=== PATIENT | female | born 1965 | race Caucasian/White ===

== ENCOUNTER 2016-06-30 12:42 | Inpatient (IN) | payer BC ==
[~2016-06-30] VITALS: Ht 165.1 cm; Wt 89.0 kg
[2016-07-05] MEDS ORDERED: SYNTHROID50 MCG PO (14:56)
[2016-07-05] MEDS ORDERED: SENOKOT DPS8.6 MG PO (14:56)
[2016-07-05] MEDS ORDERED: HYDROCODONE 5MG/5 MG PO (14:56)
[2016-07-05] MEDS ORDERED: PRILOSEC DPS20 MG PO (14:56)
[2016-07-05] MEDS ORDERED: CLARITIN DPS10 MG PO (14:56)
[2016-07-05] MEDS ORDERED: ZOFRAN DPS8 MG PO (14:57)
[2016-07-05] MEDS ORDERED: GI COCKTAIL PO (14:57)
[2016-07-05] MEDS ORDERED: AMBIEN DPS5 MG PO (14:57)
[2016-07-05] MEDS ORDERED: LEVAQUIN D750 MG/150 IV (14:58)
[2016-07-05] MEDS ORDERED: PHENERGAN W/COD30 ML PO (14:58)
--- NOTE | 2016-07-22 16:23 | HP ---
ADMIT: 06/30/2016 RM/LOC: 508 [facility] MR#: [id number] [address] [address] ADRIENNE FLORES [address] [place] [address] History and Physical SEX: F AGE: 50 : 1965 DATE OF SERVICE: 06/30/2016 CHIEF COMPLAINT: Fever. HISTORY OF PRESENT ILLNESS: The patient is a pleasant, 50-year-old female whom we have followed closely in the Oncology clinic for her metastatic lung cancer. She is currently receiving salvage chemotherapy using gemcitabine, carboplatin, and Avastin. She also just completed a course of radiation to her upper lung mass. She is feeling quite poorly over the last several days with difficulty swallowing and painful swallowing due to her radiation mucositis. She has also had low-grade fevers for the last 3 or 4 days around 100, but today her temp was up to 101.5. Again, she was found to have a neutrophil count of 1.1, which is expected to get even lower in the upcoming days. She was dizzy and complaining of weakness. She denies any urinary symptoms, although her UA in our clinic did show evidence of a urinary tract infection. Her breathing has been fairly comfortable, but she has had a nagging cough that has not improved over the last few days. She was, therefore, admitted to the hospital under our service for further treatment of her possible severe sepsis syndrome. We did give her a dose of cefepime in our clinic prior to her labs and other studies returning when we decided to admit her to the hospital. Blood cultures were also obtained. PAST MEDICAL HISTORY: The patient basically has her history of metastatic lung cancer as well as hypertension. MEDICATIONS: These were reviewed in her chart. They include: 1. OxyContin. 2. Hydrocodone. 3. Losartan. 4. HCTZ. ALLERGIES: REVIEWED IN HER CHART. SOCIAL HISTORY: The patient is . She remains still fairly active. She is employed with [employer]. She is a lifelong nonsmoker. FAMILY HISTORY: She is not aware of any recurrent hereditary malignancies in the family. REVIEW OF SYSTEMS: See HPI. Otherwise, complete review of systems was obtained and was negative. PHYSICAL EXAMINATION: VITAL SIGNS: Temp is 101.2, blood pressure is 134/86, respirations 16, heart rate was initially 112 and is now down to 86. Saturations are normal on room air. GENERAL: She is in no acute distress and provides me a good history. She is alert and oriented. HEENT: Mucous membranes are moist. No oral lesions are seen. Extraocular muscles are intact. Pupils are reactive and symmetrical. ADMIT: 06/30/2016 RM/LOC: 508 [facility] MR#: [id number] [address] [address] ADRIENNE FLORES [address] [address] [address] History and Physical SEX: F AGE: 50 : 1965 NECK: Without adenopathy or JVD. HEART: Regular rate and rhythm without murmur. LUNGS: Clear to auscultation bilaterally without any crackles or wheezes. ABDOMEN: Soft, nontender, and nondistended with positive bowel sounds throughout. No organomegaly is appreciated. EXTREMITIES: No edema, rashes, lesions or adenopathy is felt. LABORATORY AND X-RAY DATA: See HPI. Her lactic acid was 0.9, procalcitonin 0.1, white count was 1.2, platelet count is 41, hemoglobin was down to 5.8. Chest x-ray shows essentially some mild inflammatory changes but no convincing pneumonia. Urinalysis was positive for likely a UTI. ASSESSMENT AND PLAN: Neutropenic fever. The patient does need screening criteria for severe sepsis. She will be covered with broad-spectrum antibiotics with cefepime, and given her ongoing mucositis probably should cover her with at least a couple of days of vancomycin until we know blood culture results. The appropriate labs have been ordered. We will await her blood culture results. I think she does probably have a urinary tract infection, and with her ongoing cause may also have some type of lung infection. If this persists, we will get a CT scan of the chest to further sort out her findings. I will, otherwise, provide her supportive care for her other issues. She does have hypokalemia that will be replaced. We are giving her aggressive fluid resuscitation. She wants to be a full code status. She still has quite meaningful options remaining for her cancer and just has completed her radiation, which I think will be a significant help to her symptoms and survival from this primary lung mass. Chung Heller MD/ luciano JOB #: [id number] CC: Chung Heller, Attending Physician Max South, Family Physician
--- NOTE | 2016-08-04 18:36 | DS ---
ADMIT: 06/30/2016 RM/LOC: 508 [facility] MR#: [id number] [facility]#: [id number] [address] [address] ADRIENNE FLORES [address] [place] [address] Discharge Summary SEX: F AGE: 50 : 1965 ADMISSION DATE: 06/30/2016 DISCHARGE DATE: 07/03/2016 FINAL DIAGNOSES: 1. Neutropenic fever. 2. Anemia. 3. Hypokalemia. 4. Radiation esophagitis. 5. Metastatic lung cancer. 6. Urinary tract infection. 7. Pancytopenia secondary to chemotherapy. 8. Pneumonia. CONSULTATIONS: None. PROCEDURES: None. HISTORY AND PHYSICAL: The patient is a 50-year-old female who has metastatic lung cancer and has been through extensive treatments. She had recent radiation, which has resulted in some esophageal mucositis. Please see original H and P for further details. HOSPITAL COURSE: The patient admitted to the Oncology Service. She was initially placed in the ICU for her febrile neutropenia. We quickly transferred her to the telemetry floor as she is stabilized. We placed her on cefepime antibiotic therapy. She eventually had a UTI that grew group B strep, which was sensitive to our antibiotics of choice. She was given lot of supportive care and physical therapy. Her white count improved to 1.8 at the day of discharge. Her fever had resolved. Her throat symptoms were improved. She had gained some strength. She was wanting to go home and was stable for discharge. We therefore discharged her home on 07/03/2016 on oral antibiotic therapy and close followup. Please see chart for further details on her discharge medications and other plans. Chung Heller MD/ luciano JOB #: [id number] CC: Chung Heller MD, Attending Physician Max South MD, Family Physician
[2016-10-08] MEDS ORDERED: PROVENTIL2.5 MG/3 M IH (13:33)
[2016-10-08] MEDS ORDERED: CLEOCIN75 MG/5 ML IV (13:34)
[2016-10-08] MEDS ORDERED: NORMAL SALINE FL5 ML IV (13:35)
[2016-10-08] MEDS ORDERED: PROTONIX IV40 MG IV (13:36)
[2016-10-08] MEDS ORDERED: NORMAL SALINE1000 ML IV (13:37)
[2016-10-08] MEDS ORDERED: NORMAL SALINE IV (13:38)
[2016-10-08] MEDS ORDERED: SOLU-MEDRO125 MG/2 M IV (13:39)
[2016-10-08] MEDS ORDERED: COLACE-DPS100 MG PO (13:39)
[2016-10-08] MEDS ORDERED: BENADRYL25 MG PO (13:39)
[2016-10-08] MEDS ORDERED: MAALOX DPS30 ML PO (13:40)
[2016-10-08] MEDS ORDERED: TYLENOL DPS325 MG PO (13:41)
[2016-10-08] MEDS ORDERED: NITROSTAT0.4 MG SL (13:42)
[2016-10-08] MEDS ORDERED: MORPHINE P30 MG/30 M IV (13:44)
[2016-10-08] MEDS ORDERED: HEPARIN LO IV (13:44)
[2016-10-08] MEDS ORDERED: MORPHINE2 MG/ML IV (13:45)
[2016-10-08] MEDS ORDERED: NARCAN4 MG IV (13:46)
[2016-10-08] MEDS ORDERED: REGLAN INJ10 MG/2 ML IV (13:47)
== END 2016-07-03 19:00 | disposition home or self-care (01) | DRG 808 ==
LOC: 5MS 12:42 → 3ICU 12:42 → 5MS 07-01 01:24
PROVIDERS: ADMIT Internal Medicine
DX: D70.9 Neutropenia, unspecified (principal); J18.9 Pneumonia, unspecified organism; C79.9 Secondary malignant neoplasm of unspecified site; T66.XXXA Radiation sickness, unspecified, initial encounter; R13.10 Dysphagia, unspecified; K12.30 Oral mucositis (ulcerative), unspecified; C34.90 Malignant neoplasm of unspecified part of unspecified bronchus or lung; N39.0 Urinary tract infection, site not specified; R50.81 Fever presenting with conditions classified elsewhere; K20.8 Other esophagitis; I10 Essential (primary) hypertension; E87.6 Hypokalemia; D61.810 Antineoplastic chemotherapy induced pancytopenia; B95.1 Streptococcus, group B, as the cause of diseases classified elsewhere

== ENCOUNTER → 2016-07-29 | Outpatient (CLI) | payer BC ==
[~2016-07-29] MED LIST: AMBIEN DPS5 MG PO; BENADRYL25 MG PO; CLARITIN DPS10 MG PO; CLEOCIN75 MG/5 ML IV; COLACE-DPS100 MG PO; GI COCKTAIL PO; HEPARIN LO IV; HYDROCODONE 5MG/5 MG PO; LEVAQUIN D750 MG/150 IV; MAALOX DPS30 ML PO; MORPHINE P30 MG/30 M IV; MORPHINE2 MG/ML IV; NARCAN4 MG IV; NITROSTAT0.4 MG SL; NORMAL SALINE FL5 ML IV; NORMAL SALINE IV; NORMAL SALINE1000 ML IV; PHENERGAN W/COD30 ML PO; PRILOSEC DPS20 MG PO; PROTONIX IV40 MG IV; PROVENTIL2.5 MG/3 M IH; REGLAN INJ10 MG/2 ML IV; SENOKOT DPS8.6 MG PO; SOLU-MEDRO125 MG/2 M IV; SYNTHROID50 MCG PO; TYLENOL DPS325 MG PO; ZOFRAN DPS8 MG PO
== END | disposition home or self-care (01) ==
LOC: RAD.S 14:22
DX: M54.2 Cervicalgia (principal); R22.1 Localized swelling, mass and lump, neck; K20.9 Esophagitis, unspecified; C34.30 Malignant neoplasm of lower lobe, unspecified bronchus or lung; I31.3 Pericardial effusion (noninflammatory)

== ENCOUNTER 2016-07-31 05:55 | Day surgery (SDC) | payer BC ==
[~2016-07-31] VITALS: Ht 195.6 cm; Wt 81.0 kg
[~2016-07-31 05:55] MED LIST changes: -BENADRYL25 MG PO; -CLEOCIN75 MG/5 ML IV; -COLACE-DPS100 MG PO; -HEPARIN LO IV; -MAALOX DPS30 ML PO; -MORPHINE P30 MG/30 M IV; -MORPHINE2 MG/ML IV; -NARCAN4 MG IV; -NITROSTAT0.4 MG SL; -NORMAL SALINE FL5 ML IV; -NORMAL SALINE IV; -NORMAL SALINE1000 ML IV; -PROTONIX IV40 MG IV; -PROVENTIL2.5 MG/3 M IH; -REGLAN INJ10 MG/2 ML IV; -SOLU-MEDRO125 MG/2 M IV; -TYLENOL DPS325 MG PO
--- NOTE | 2016-08-27 10:44 | OR ---
ADMIT: 07/31/2016 RM/LOC: [facility] MR#: [id number] [address] [address] FLORESADRIENNE KYLE [address] [place] [address] Operative/Delivery Room Report SEX: F AGE: 50 : 1965 SURGERY DATE: 07/31/2016 SURGEON: Brian Rodriguez MD CHIEF COMPLAINT: Dysphagia. Status post radiation. POSTOPERATIVE DIAGNOSIS: Tight proximal esophageal stricture. PROCEDURE PERFORMED: EGD with dilation. ANESTHESIA: Sedation. ESTIMATED BLOOD LOSS: None. DESCRIPTION OF PROCEDURE: After appropriate informed consent was obtained, the patient was brought to the endoscopy suite. IV sedation was provided. A well-lubricated endoscope was introduced and passed down the esophagus. The mouth and vocal cords appeared normal. But just past the vocal cords, approximately 2 or 3 cm distal to that, was the start of a really tight esophageal stricture. I was unable to get the scope to even advance through the proximal aspect of this stricture. I started with the 12-15 mm balloon and carefully tried to dilate this stricture so I could get the scope to go down but even after dilating up to 15 mm, it just became evident, I was not able to get the scope to go through this area. So, I upsized the balloon, went to the 15 to 18 balloon, went to as big as 16-1/2 mm on this balloon but even still with that dilation, I was unable to get the scope to advance through this stricture. It was just so rock hard and tight; at a bad angle being so proximal, I just could not get enough forward pressure on the scope to advance it down. So, instead of persisting and potentially perforating her esophagus, I did just do several biopsies of this proximal esophageal stricture and then removed the scope. I did talk with Dr. Vasques, [facility] to see if he could possibly do a G-tube with CT guidance today and he is going to work on that. Brian Rodriguez MD/ luciano JOB #: [id number] CC: Brian Rodriguez, Attending Physician Max South, Family Physician
[2016-10-08] MEDS ORDERED: PROVENTIL2.5 MG/3 M IH (13:33)
[2016-10-08] MEDS ORDERED: CLEOCIN75 MG/5 ML IV (13:34)
[2016-10-08] MEDS ORDERED: NORMAL SALINE FL5 ML IV (13:35)
[2016-10-08] MEDS ORDERED: PROTONIX IV40 MG IV (13:36)
[2016-10-08] MEDS ORDERED: NORMAL SALINE1000 ML IV (13:37)
[2016-10-08] MEDS ORDERED: NORMAL SALINE IV (13:38)
[2016-10-08] MEDS ORDERED: COLACE-DPS100 MG PO (13:39)
[2016-10-08] MEDS ORDERED: BENADRYL25 MG PO (13:39)
[2016-10-08] MEDS ORDERED: SOLU-MEDRO125 MG/2 M IV (13:39)
[2016-10-08] MEDS ORDERED: MAALOX DPS30 ML PO (13:40)
[2016-10-08] MEDS ORDERED: TYLENOL DPS325 MG PO (13:41)
[2016-10-08] MEDS ORDERED: NITROSTAT0.4 MG SL (13:42)
[2016-10-08] MEDS ORDERED: HEPARIN LO IV (13:44)
[2016-10-08] MEDS ORDERED: MORPHINE P30 MG/30 M IV (13:44)
[2016-10-08] MEDS ORDERED: MORPHINE2 MG/ML IV (13:45)
[2016-10-08] MEDS ORDERED: NARCAN4 MG IV (13:46)
[2016-10-08] MEDS ORDERED: REGLAN INJ10 MG/2 ML IV (13:47)
== END 2016-07-31 14:45 | disposition home or self-care (01) ==
LOC: SSS 05:55
PROC: 0D758ZZ Dilation of Esophagus, Via Natural or Artificial Opening Endoscopic (ICD-10-PCS; principal; 2016-07-31)
PROC: 0DB58ZX Excision of Esophagus, Via Natural or Artificial Opening Endoscopic, Diagnostic (ICD-10-PCS; principal; 2016-07-31)
DX: K22.10 Ulcer of esophagus without bleeding (principal); K22.2 Esophageal obstruction; C15.9 Malignant neoplasm of esophagus, unspecified; I10 Essential (primary) hypertension; E07.9 Disorder of thyroid, unspecified; Z90.710 Acquired absence of both cervix and uterus; Z79.899 Other long term (current) drug therapy; Z88.0 Allergy status to penicillin

== ENCOUNTER → 2016-08-12 | Outpatient (CLI) | payer BC ==
[~2016-08-12] MED LIST changes: +BENADRYL25 MG PO; +CLEOCIN75 MG/5 ML IV; +COLACE-DPS100 MG PO; +HEPARIN LO IV; +MAALOX DPS30 ML PO; +MORPHINE P30 MG/30 M IV; +MORPHINE2 MG/ML IV; +NARCAN4 MG IV; +NITROSTAT0.4 MG SL; +NORMAL SALINE FL5 ML IV; +NORMAL SALINE IV; +NORMAL SALINE1000 ML IV; +PROTONIX IV40 MG IV; +PROVENTIL2.5 MG/3 M IH; +REGLAN INJ10 MG/2 ML IV; +SOLU-MEDRO125 MG/2 M IV; +TYLENOL DPS325 MG PO
== END | disposition home or self-care (01) ==
LOC: RAD.S 08:51
PROC: 0D20XYZ Change Other Device in Upper Intestinal Tract, External Approach (ICD-10-PCS; principal; 2016-08-12)
DX: Z43.1 Encounter for attention to gastrostomy (principal)

== ENCOUNTER → 2016-08-21 | Outpatient (CLI) | payer BC | END | disposition home or self-care (01) | LOC: RAD.S 10:00 | PROC: 0D20XYZ Change Other Device in Upper Intestinal Tract, External Approach (ICD-10-PCS; principal; 2016-08-21) | DX: Z43.1 Encounter for attention to gastrostomy (principal) ==

== ENCOUNTER 2016-09-25 10:03 | Day surgery (SDC) | payer BC ==
[~2016-09-25] VITALS: Ht 165.1 cm; Wt 77.5 kg
[~2016-09-25 10:03] MED LIST changes: -BENADRYL25 MG PO; -CLEOCIN75 MG/5 ML IV; -COLACE-DPS100 MG PO; -HEPARIN LO IV; -MAALOX DPS30 ML PO; -MORPHINE P30 MG/30 M IV; -MORPHINE2 MG/ML IV; -NARCAN4 MG IV; -NITROSTAT0.4 MG SL; -NORMAL SALINE FL5 ML IV; -NORMAL SALINE IV; -NORMAL SALINE1000 ML IV; -PROTONIX IV40 MG IV; -PROVENTIL2.5 MG/3 M IH; -REGLAN INJ10 MG/2 ML IV; -SOLU-MEDRO125 MG/2 M IV; -TYLENOL DPS325 MG PO
--- NOTE | 2016-10-08 10:36 | OR ---
ADMIT: 09/25/2016 RM/LOC: [facility] MR#: [id number] [address] [address] ADRIENNE FLORES [place] [address] [place] [address] Operative/Delivery Room Report SEX: F AGE: 50 : 1965 SURGERY DATE: 09/25/2016 SURGEON: Brian Rodriguez MD PREOPERATIVE DIAGNOSIS: Esophageal stricture secondary to radiation to the chest. POSTOPERATIVE DIAGNOSIS: Esophageal stricture secondary to radiation to the chest. PROCEDURE PERFORMED: EGD with dilation with [id number] Savary dilators. ANESTHESIA: Sedation. ESTIMATED BLOOD LOSS: Less than 10 mL. DESCRIPTION OF PROCEDURE: After appropriate informed consent was obtained, the patient was brought to the endoscopy suite. IV sedation was provided. A well-lubricated endoscope was introduced and immediately below the arytenoid cartilages was the proximal aspect of this tight stricture. It was still inflamed and ulcerated with whitish plaque along the length of this esophageal stricture. I was unable to advance the scope through this area. I was able to get a wire to advance through the stricture though. I then removed the scope and used a series of [id number]-jpld Savary dilators and started with about a 7 mm dilator, so basically the smallest one that we had, and advanced up to around 13 to 15 mm in size. The dilators went through pretty easily. The last dilator and wire were then removed. The scope was reintroduced, and I was fortunately able to advance the scope through this dilated stricture all the way into the stomach. The gastric mucosa, pylorus, duodenal bulb, second and third portions of the duodenum appeared normal. The scope was then pulled back into the stomach, retroflexed, revealing no hiatal hernia from below, just a little bit of blood pooling in the fundus from the dilation of the esophagus. The scope was then slowly withdrawn, and on the way out, I could see that there was a pretty long mucosal tear where I had done the dilation that did not appear to be full-thickness at all. I could see some muscle fibers though, so I decompressed the stomach and withdrew the scope entirely. There was no active bleeding, but we did obviously get a nice dilation effect to this stricture in hopes of allowing her to be able to swallow and tolerate her secretions a little bit easier. The scope was withdrawn. She tolerated the procedure well, and was taken to the recovery room in stable condition. Brian Rodriguez MD/ luciano JOB #: [id number] CC: Brian Rodriguez MD, Attending Physician Max South MD, Family Physician
[2016-10-08] MEDS ORDERED: PROVENTIL2.5 MG/3 M IH (13:33)
[2016-10-08] MEDS ORDERED: CLEOCIN75 MG/5 ML IV (13:34)
[2016-10-08] MEDS ORDERED: NORMAL SALINE FL5 ML IV (13:35)
[2016-10-08] MEDS ORDERED: PROTONIX IV40 MG IV (13:36)
[2016-10-08] MEDS ORDERED: NORMAL SALINE1000 ML IV (13:37)
[2016-10-08] MEDS ORDERED: NORMAL SALINE IV (13:38)
[2016-10-08] MEDS ORDERED: COLACE-DPS100 MG PO (13:39)
[2016-10-08] MEDS ORDERED: BENADRYL25 MG PO (13:39)
[2016-10-08] MEDS ORDERED: SOLU-MEDRO125 MG/2 M IV (13:39)
[2016-10-08] MEDS ORDERED: MAALOX DPS30 ML PO (13:40)
[2016-10-08] MEDS ORDERED: TYLENOL DPS325 MG PO (13:41)
[2016-10-08] MEDS ORDERED: NITROSTAT0.4 MG SL (13:42)
[2016-10-08] MEDS ORDERED: MORPHINE P30 MG/30 M IV (13:44)
[2016-10-08] MEDS ORDERED: HEPARIN LO IV (13:44)
[2016-10-08] MEDS ORDERED: MORPHINE2 MG/ML IV (13:45)
[2016-10-08] MEDS ORDERED: NARCAN4 MG IV (13:46)
[2016-10-08] MEDS ORDERED: REGLAN INJ10 MG/2 ML IV (13:47)
== END 2016-09-25 14:00 | disposition home or self-care (01) ==
LOC: SSS 10:03
PROC: 0D718ZZ Dilation of Upper Esophagus, Via Natural or Artificial Opening Endoscopic (ICD-10-PCS; principal; 2016-09-25)
DX: K22.2 Esophageal obstruction (principal); I10 Essential (primary) hypertension; K21.9 Gastro-esophageal reflux disease without esophagitis; E03.9 Hypothyroidism, unspecified; Z88.0 Allergy status to penicillin; Z85.118 Personal history of other malignant neoplasm of bronchus and lung; Z90.710 Acquired absence of both cervix and uterus; Z98.890 Other specified postprocedural states

== ENCOUNTER 2016-10-01 09:07 | Emergency (ER) | payer BC ==
--- NOTE | 2016-10-02 10:50 | ER ---
ADMIT: 10/01/2016 RM/LOC: ER [facility] MR#: [id number] [address] [address] ADRIENNE FLORES [address] [place] [address] Emergency Room Report SEX: F AGE: 50 : 1965 DATE: 10/01/2016 CHIEF COMPLAINT: Chest pain. HISTORY OF PRESENT ILLNESS: The patient is a 50-year-old female with history of lung cancer, who has had chemo and radiation, normally sees Dr. Heller. She was actually seen at the Oncology Clinic today, seen by the nurse practitioner there. There was some concern with this atypical chest pain and her history of blood clots in the past, so she was sent to our ER for further evaluation of possible PE. The patient states she has been having this pain for several weeks, so it is not real acute but with her history of DVT and PE in the past, we are indeed also concerned about possible PE. She denies any fevers, chills, or any difficulty breathing. She does not have any change in bowel or bladder function. She denies any new leg swelling or calf pain. PAST MEDICAL HISTORY: 1. Lung cancer. 2. DVT. 3. PE. PAST SURGICAL HISTORY: She has a port to the right side of her chest, hysterectomy, feeding tube. ALLERGIES: PENICILLIN. MEDICATIONS: See nurse's note. She did put on 4 fentanyl patches this morning. SOCIAL HISTORY: Denies smoking, drug, or alcohol use. Never was a smoker. PHYSICAL EXAMINATION: GENERAL: The patient is alert, is not in any distress, does appear a little uncomfortable. HEENT: Head is atraumatic. HEART: Regular rate and rhythm. LUNGS: Clear to auscultation. There is a port on the right side of her chest, which does not appear to have any superficial signs of infection. SKIN: Warm and dry. She has no calf pain, pedal edema, or Homans sign. LABORATORY AND X-RAY DATA: She did have labs done this morning at the Oncology Clinic and those were reviewed. She did have a D-dimer of 0.85. Sodium was slightly low at 133. Hemoglobin was 8.4, which is not new for her. ADMIT: 10/01/2016 RM/LOC: [facility] MR#: [id number] [address] [address] ADRIENNE FLORES [address] [place] [address] Emergency Room Report SEX: F AGE: 50 : 1965 EKG shows sinus rhythm, rate of 97, no signs of ST-elevation or acute AK. CT angio of her chest was done, which reveals no PE, and overall appears stable or slightly improved. The patient was given Dilaudid here and her pain was significantly improved. I discussed the case with Dr. Heller, her oncologist, and plan at this time is to discharge the patient home. She is to follow up with Dr. Heller. I have instructed her to take off her extra fentanyl patches. DIAGNOSES: 1. Atypical chest pain. 2. Metastatic lung cancer. Axel Caba MD/ luciano JOB #: [id number] CC: Axel Caba MD, Attending Physician UNKNOWN, Family Physician
[2016-10-08] MEDS ORDERED: PROVENTIL2.5 MG/3 M IH (13:33)
[2016-10-08] MEDS ORDERED: CLEOCIN75 MG/5 ML IV (13:34)
[2016-10-08] MEDS ORDERED: NORMAL SALINE FL5 ML IV (13:35)
[2016-10-08] MEDS ORDERED: PROTONIX IV40 MG IV (13:36)
[2016-10-08] MEDS ORDERED: NORMAL SALINE1000 ML IV (13:37)
[2016-10-08] MEDS ORDERED: NORMAL SALINE IV (13:38)
[2016-10-08] MEDS ORDERED: SOLU-MEDRO125 MG/2 M IV (13:39)
[2016-10-08] MEDS ORDERED: BENADRYL25 MG PO (13:39)
[2016-10-08] MEDS ORDERED: COLACE-DPS100 MG PO (13:39)
[2016-10-08] MEDS ORDERED: MAALOX DPS30 ML PO (13:40)
[2016-10-08] MEDS ORDERED: TYLENOL DPS325 MG PO (13:41)
[2016-10-08] MEDS ORDERED: NITROSTAT0.4 MG SL (13:42)
[2016-10-08] MEDS ORDERED: MORPHINE P30 MG/30 M IV (13:44)
[2016-10-08] MEDS ORDERED: HEPARIN LO IV (13:44)
[2016-10-08] MEDS ORDERED: MORPHINE2 MG/ML IV (13:45)
[2016-10-08] MEDS ORDERED: NARCAN4 MG IV (13:46)
[2016-10-08] MEDS ORDERED: REGLAN INJ10 MG/2 ML IV (13:47)
== END 2016-10-01 12:00 | disposition home or self-care (01) ==
LOC: ER 09:07
DX: R07.89 Other chest pain (principal); C34.90 Malignant neoplasm of unspecified part of unspecified bronchus or lung; Z88.0 Allergy status to penicillin; Z90.710 Acquired absence of both cervix and uterus

== ENCOUNTER 2016-10-05 10:32 | Emergency (ER) | payer BC ==
[2016-10-08] MEDS ORDERED: PROVENTIL2.5 MG/3 M IH (13:33)
[2016-10-08] MEDS ORDERED: CLEOCIN75 MG/5 ML IV (13:34)
[2016-10-08] MEDS ORDERED: NORMAL SALINE FL5 ML IV (13:35)
[2016-10-08] MEDS ORDERED: PROTONIX IV40 MG IV (13:36)
[2016-10-08] MEDS ORDERED: NORMAL SALINE1000 ML IV (13:37)
[2016-10-08] MEDS ORDERED: NORMAL SALINE IV (13:38)
[2016-10-08] MEDS ORDERED: BENADRYL25 MG PO (13:39)
[2016-10-08] MEDS ORDERED: COLACE-DPS100 MG PO (13:39)
[2016-10-08] MEDS ORDERED: SOLU-MEDRO125 MG/2 M IV (13:39)
[2016-10-08] MEDS ORDERED: MAALOX DPS30 ML PO (13:40)
[2016-10-08] MEDS ORDERED: TYLENOL DPS325 MG PO (13:41)
[2016-10-08] MEDS ORDERED: NITROSTAT0.4 MG SL (13:42)
[2016-10-08] MEDS ORDERED: HEPARIN LO IV (13:44)
[2016-10-08] MEDS ORDERED: MORPHINE P30 MG/30 M IV (13:44)
[2016-10-08] MEDS ORDERED: MORPHINE2 MG/ML IV (13:45)
[2016-10-08] MEDS ORDERED: NARCAN4 MG IV (13:46)
[2016-10-08] MEDS ORDERED: REGLAN INJ10 MG/2 ML IV (13:47)
--- NOTE | 2016-10-08 14:46 | ER ---
ADMIT: 10/05/2016 RM/LOC: ER [facility] MR#: [id number] [address] [address] ADRIENNE FLORES [address] [place] [address] Emergency Room Report SEX: F AGE: 50 : 1965 DATE: 10/05/2016 ADDENDUM: CHIEF COMPLAINT: G-tube fell out. HISTORY OF PRESENT ILLNESS: This is a 50-year-old female. Her G-tube fell out at home. We were not able to find an 18-gauge here in the hospital, so I replaced it with her own. I did tell her to call the surgeons tomorrow just to have G-tube replacement for previous hospital visits. KUB is going to be done. I will have Dr. Montemayor over-read it for G-tube placement. Once that is done, the patient will be discharged to home. CLINICAL IMPRESSION: G-tube replacement. ZANDER Zuniga / Sal Montemayor MD / luciano JOB #: [id number] CC: Sal Montemayor MD, Attending Physician
== END 2016-10-05 12:28 | disposition home or self-care (01) ==
LOC: ER 10:32
PROC: 0DH63UZ Insertion of Feeding Device into Stomach, Percutaneous Approach (ICD-10-PCS; principal; 2016-10-05)
DX: Z43.1 Encounter for attention to gastrostomy (principal); F17.210 Nicotine dependence, cigarettes, uncomplicated; Z85.118 Personal history of other malignant neoplasm of bronchus and lung; Z88.0 Allergy status to penicillin; Z79.899 Other long term (current) drug therapy

== ENCOUNTER 2016-10-06 19:16 | Inpatient (IN) | payer BC ==
[~2016-10-06] VITALS: Ht 165.1 cm; Wt 87.1 kg
--- NOTE | ~2016-10-06 | DS ---
ADMIT: 10/06/2016 RM/LOC: 314 [facility] MR#: [id number] [address] [address] FLORIAN FLORESIE Tomas [address] [place] [address] General Discharge Summary SEX: F AGE: 50 : 1965 ADMISSION DATE: 10/06/2016 DISCHARGE DATE: 10/07/2016 FINAL DIAGNOSES: 1. Tracheoesophageal fistula. 2. Stage IV lung cancer. 3. Aspiration pneumonia. 4. Hypertension. 5. Hypothyroidism. Tomeka Navarrete MD/ laniel JOB #: [id number] CC: Tomeka Navarrete MD, Attending Physician Tomeka Navarrete MD, Family Physician
[2016-10-08] MEDS ORDERED: PROVENTIL2.5 MG/3 M IH (13:33)
[2016-10-08] MEDS ORDERED: CLEOCIN75 MG/5 ML IV (13:34)
[2016-10-08] MEDS ORDERED: NORMAL SALINE FL5 ML IV (13:35)
[2016-10-08] MEDS ORDERED: PROTONIX IV40 MG IV (13:36)
[2016-10-08] MEDS ORDERED: NORMAL SALINE1000 ML IV (13:37)
[2016-10-08] MEDS ORDERED: NORMAL SALINE IV (13:38)
[2016-10-08] MEDS ORDERED: COLACE-DPS100 MG PO (13:39)
[2016-10-08] MEDS ORDERED: BENADRYL25 MG PO (13:39)
[2016-10-08] MEDS ORDERED: SOLU-MEDRO125 MG/2 M IV (13:39)
[2016-10-08] MEDS ORDERED: MAALOX DPS30 ML PO (13:40)
[2016-10-08] MEDS ORDERED: TYLENOL DPS325 MG PO (13:41)
[2016-10-08] MEDS ORDERED: NITROSTAT0.4 MG SL (13:42)
[2016-10-08] MEDS ORDERED: MORPHINE P30 MG/30 M IV (13:44)
[2016-10-08] MEDS ORDERED: HEPARIN LO IV (13:44)
[2016-10-08] MEDS ORDERED: MORPHINE2 MG/ML IV (13:45)
[2016-10-08] MEDS ORDERED: NARCAN4 MG IV (13:46)
[2016-10-08] MEDS ORDERED: REGLAN INJ10 MG/2 ML IV (13:47)
--- NOTE | 2016-10-19 14:54 | HP ---
ADMIT: 10/06/2016 RM/LOC: 314 [facility] MR#: [id number] [address] [address] ADRIENNE FLORES [address] [place] [address] History and Physical SEX: F AGE: 50 : 1965 DATE OF SERVICE: CHIEF COMPLAINT: Chest pain and reflux of G-tube feeding material. HISTORY OF PRESENT ILLNESS: This is a 50-year-old lady, who has a history of stage IV metastatic lung cancer and is on palliative chemotherapy treatments. Her oncologist is Dr. Heller. Her primary MD is Dr. South in [place]. She has had radiation and has esophageal strictures. She has a G-tube for her nutrition. However, to help her better handle her own secretions and possibly get to the point of being able to eat for comfort, she has been undergoing esophageal dilation. Her last dilation procedure was September [address] Rodriguez. This procedure did allow her to feel like she could swallow a little bit better for several days. However, she said that yesterday, her G-button came out, so she had it replaced in [place]. X-rays were done for placement. She then did a feeding with last evening and pretty quickly began to feel some pain in the chest and then started coughing and coughed out some of the formula product. She said every time she tries to lay back, she feels like she is going to cough and has pain and sense of reflux. She has continuous belching. She came into our emergency room and underwent chest x- ray, which showed some interstitial markings in the left base, but no significant findings otherwise. She also had esophagram. It could not be completed totally because she was not able to lay down to check for actual reflux. Every time she tried to lay down, she would have severe gagging and coughing. She also could not drink the barium because she was gagging on that. Therefore, barium was instilled through the G-tube. With the limited study, barium was placed through her G-tube and flowed into the duodenum just as expected. There was also seen soft tissue or curvilinear structure in the left paraspinal region as read by the radiologist. She was uncertain what that is, but did not think it was a fistula. Radiologist recommended possible CT with contrast in the stomach to rule out fistula. The patient had a fever, was tachycardic. She was worked up on the sepsis protocol and admitted to ICU. She was started on clindamycin and Levaquin IV. We will also do a dose of steroids, and we will continue those. We will keep her completely n.p.o. and nothing per the G-tube either. Her medicines were held. PAST MEDICAL HISTORY: Significant for her lung cancer with chemotherapy and radiation. Also, significant for hypertension, which is controlled with her losartan alone. Hypothyroidism and history of diverticulitis. MEDICATIONS: She said she takes morphine short intermediate or short-acting (she was uncertain) 15 mg about twice daily, sometimes more often. She also has losartan and hydrochlorothiazide, we do not have the actual doses. ALLERGIES: PENICILLIN. SOCIAL HISTORY: She is . 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 She is a lifelong nonsmoker. ADMIT: 10/06/2016 RM/LOC: 314 [facility] MR#: [id number] [address] [place] [id number] ADRIENNE FLORES [address] [place] [address] History and Physical SEX: F AGE: 50 : 1965 FAMILY HISTORY: Negative for hereditary malignancies. REVIEW OF SYSTEMS: GENERAL: She has had fever, malaise. ENT: She feels gagging and little bit of throat irritation. Denies other ENT symptoms. She is of course unable to swallow very much at all, including her own secretions at times. GI: Difficulty swallowing and she has the gagging. She said she is belching over and over. She denies dark stools. She said she actually has not had a bowel movement for 3 or 4 days, which is quite unusual since she usually had loose stools. : No complaints. MUSCULOSKELETAL: Nothing specific. She does have achiness and pain in the anterior chest when she is belching. The belching does not decrease the pain. NEUROPSYCHIATRIC: She is frustrated by her symptoms, but otherwise benign. ENDOCRINE: Positive for hypothyroidism. She is not diabetic. PHYSICAL EXAMINATION: VITAL SIGNS: Blood pressures range from 109 to 130 over 70s. Heart rate is in the 110s. She has a temp of 99.0. On admission last evening, it was 101.2. GENERAL: She is sitting up in a chair, appears tired and uncomfortable. She was dozing and wakes up easily. She is alert, oriented x3. She has recurrent belching over and over. HEENT: Mucous membranes look slightly dry. She has no scleral icterus. No jaundice. NECK: Supple. LUNGS: Diminished, but minimal rhonchi. She said it hurts to take a deep breath, so it is difficult to auscultate throughout. I hear no wheezing. HEART: Regular. Tachycardic. ABDOMEN: Belly with bowel sounds present. She has a little tenderness to palpation across the upper abdomen. EXTREMITIES: Lower extremities have a trace to 1+ pretibial edema. LABORATORY DATA: Sodium 130, potassium 4.4, chloride 90, bicarb 32, BUN is 21, with a creatinine of 0.6. Her glucose was elevated at 210, but she has had steroids. Bilirubin 0.5, albumin 2.8, calcium was 9.1. AST and ALT are normal. Cardiac enzymes were drawn when she came to the emergency room and they were normal. White count is 9.3; hemoglobin 8.0, which has dropped from 9.2 on September 16 and 8.7 on September 23; RDW is 19; and her platelet count is 266. ASSESSMENT: 1. Esophageal stricture with recent dilation 12 days ago. 2. Metastatic lung cancer. 3. Hypertension. 4. Hypothyroidism, stable. ADMIT: 10/06/2016 RM/LOC: 314 [facility] MR#: [id number] 2620 [facility] [address] [place] [id number] ADRIENNE FLORES [address] [place] [address] History and Physical SEX: F AGE: 50 : 1965 PLAN: She has all her medicines on hold and feedings on hold. She has IV fluids running and antibiotics. She had sepsis workup because of her fever and concern for esophageal source. Dr. Rodriguez will see her today and will also notify Dr. Heller of the patient's admission. I will continue close monitoring and had morphine PAN TANK WORKER for pain and also Protonix for GI protection. I will not start any pharmacologic VTE prophylaxis at this time in case she goes to surgery for scope. We will use BETTY hose and sequential compression devices. Currently, her blood pressure is stable. I will continue to hold her blood pressure meds for now. If necessary we can use medicine IV, but at this point, it is not needed. Tomeka Navarrete MD/ luciano JOB #: [id number] CC: Tomeka Navarrete, Attending Physician Tomeka Navarrete, Family Physician
--- NOTE | 2016-10-23 07:38 | DS ---
ADMIT: 10/06/2016 RM/LOC: 314 [facility] MR#: [id number] [address] [address] ADRIENNE FLORES [address] [place] [address] General Discharge Summary SEX: F AGE: 50 : 1965 ADMISSION DATE: 10/06/2016 DISCHARGE DATE: 10/07/2016 FINAL DIAGNOSES: 1. Tracheoesophageal fistula. 2. Esophageal stricture. 3. Metastatic lung cancer status post radiation and currently on palliative chemotherapy. 4. Hypertension. 5. Hypothyroidism, stable. 6. Aspiration pneumonia. HISTORY OF PRESENT ILLNESS: Adrienne was admitted from an outside facility to be seen by our local surgeon who has done her esophageal dilations. She has stage IV lung cancer, and has undergone radiation therapy which caused esophageal stricture. She has also had concern for tracheoesophageal fistula. In any case, she has G-tube feeding and came to our hospital from [place] because of worsening reflux and concern for aspiration. She recently had an esophageal dilation about 12 days prior to this hospital stay and said her symptoms have been steadily worsening. She already had other EGDs as well. In any case, on admission, she had interstitial markings and could not tolerate laying back down for a CAT scan. We could not do any further imaging studies besides plain x-ray. She had belching reflux and was refluxing up some of her G tube feeding material. Because of her high risk of aspiration and the fact that she requires tertiary care with Oncologic Surgery and surgeon who could possibly insert an esophageal stent. She was transferred to [facility] per Dr. Rodriguez's recommendations. On admission to our hospital, I did start her on IV Levaquin and continue clindamycin. We kept her head of bed elevated and we have kept her n.p.o. with no tube feedings to protect her airway. I also used Protonix for gastric protection and morphine NURSE ADVISOR for pain control. She was transferred to [facility] on 10/07/2016 and studies as well as records were sent with her. Tomeka Navarrete MD/ luciano JOB #: [id number] CC: Tomeka Navarrete MD, Attending Physician Tomeka Navarrete MD, Family Physician
--- NOTE | 2016-11-08 18:10 | ER ---
ADMIT: 10/06/2016 RM/LOC: 314 [facility] MR#: [id number] [place], [place] [id number] ADRIENNE FLORES [address] [place] [address] Emergency Room Report SEX: F AGE: 50 : 1965 DATE: 10/06/2016 ADDENDUM: See T-sheet for complete H and P. PAST MEDICAL HISTORY: The patient has lung cancer and gets chemotherapy and radiation. She also has a history of hypothyroidism, hypertension, and diverticulitis. She also has a history of esophageal strictures, for which she has had dilations done in the past and has had a dilation done recently. She also has a G-tube for all her nutritional needs. MEDICATIONS: See nurse's note. ALLERGIES: SEE NURSE'S NOTE. SOCIAL HISTORY: The patient does not smoke, drink, or use drugs. PHYSICAL EXAMINATION: VITAL SIGNS: Blood pressure is 140/83, pulse 141, respirations 24, temperature 100.1, and saturation 98% on nonrebreather. HEENT: Head is atraumatic. Airway is patent. She has no stridor. HEART: Tachycardic. LUNGS: She has some coarse breath sounds bilaterally in the bases, and she is tachypneic. ABDOMEN: Soft. She does have a G-tube in place. SKIN: Warm and dry. EXTREMITIES: She has good pulses in all 4 extremities. She has no pedal edema. LABORATORY DATA: Shows she has a hemoglobin of 8.2, which she does have a history of anemia. INR was 1.13. Urinalysis showed 1+ protein; otherwise, no signs of infection. Chemistry showed she was hyponatremic with a sodium 131. Glucose was 185. Magnesium was 1.6. Liver enzymes were normal. Troponin was negative. ABG showed a pH 7.47, pO2 of 79, and pCO2 of 44. IMAGING: Chest x-ray showed cardiomegaly and interstitial markings in the left lung base suggesting atelectasis or inflammatory changes. EMERGENCY DEPARTMENT COURSE: When the patient presented, she was significantly short of breath and tachycardic. We were able to titrate her oxygen down while she was in the Emergency Department, but she would not ADMIT: 10/06/2016 RM/LOC: 314 [facility] MR#: [id number] [id number] [place], [place] [id number] ADRIENNE FLORES [address] [place] [address] Emergency Room Report SEX: F AGE: 50 : 1965 tolerate lying flat whatsoever. Based on her x-ray, there is a concern that she might have a possible fistula. Due to her recent dilation with her symptoms and significant oxygen requirement when she arrived, we will be admitting the patient. I spoke to Dr. Navarrete, who is the primary care physician. We will be admitting the patient at this time. The patient is admitted in serious condition. She was given Solu-Medrol 125 mg IV. Levaquin 750 mg IV, and clindamycin 900 mg IV while in the Emergency Department. DIAGNOSES: 1. Shortness of breath. 2. Possible esophageal fistula. 3. Aspiration pneumonia or pneumonitis. Axel Caba MD/ laniel JOB #: [id number] CC: Tomeka Navarrete MD, Attending Physician Tomeka Navarrete MD, Family Physician
== END 2016-10-07 11:50 | disposition short-term general hospital (02) | DRG 178 ==
LOC: ER 19:16 → 3ICU 21:43
PROVIDERS: ADMIT Family Medicine
DX: J86.0 Pyothorax with fistula (principal); C79.9 Secondary malignant neoplasm of unspecified site; C34.90 Malignant neoplasm of unspecified part of unspecified bronchus or lung; K22.2 Esophageal obstruction; I10 Essential (primary) hypertension; E03.9 Hypothyroidism, unspecified; K57.90 Diverticulosis of intestine, part unspecified, without perforation or abscess without bleeding; Z93.1 Gastrostomy status

== ENCOUNTER 2016-10-15 18:24 | Inpatient (IN) | payer BC ==
[~2016-10-15] VITALS: Ht 162.6 cm; Wt 76.7 kg
--- NOTE | ~2016-10-15 | ECH ---
Transthoracic Echocardiography Report (TTE) Demographics Patient Name ADRIENNE FLORES Date of Study 10/16/2016 Patient Number [id number] Visit Number [id number] Date of 1965 Room Number 313 Accession Number [id number] Gender Female Age 50 year(s) Referring Rosalba Tomeka J Radiographer Cardiac Catheterization [facility] Physician Physician Interpreting King Juancarlos Herr MD Mill Dresser Physician Supervising Ordering Physician Supa HUFFMAN MD/WESTLEY Garcia Nurse Stress Finish Machine Tender Conclusions Summary Technically fair exam done with patient on ventilator. The estimated left ventricular ejection fraction is 40-45%. Segmental wall motion abnormalities noted. Mild left ventricular hypertrophy. Diastolic assessment reveals Grade I diastolic dysfunction. No significant valvular abnormalities. Procedure Type of Study TTE procedure:Echo Complete SF. Procedure Date Date: 10/16/2016 Start: 11:30 AM Technical Quality: Fair due to patient on ventilator. Indications:Elevated Troponin. Additional Indications:elevated BNP Appropriate Use Criteria: 9 Height: 64 inches Weight: 169 pounds BSA: 1.82 m Rhythm: Within normal limits HR: 93 bpm BP: 133/93 mmHg M-Mode/2D Measurements LV Diastolic Dimension: 4.66 cm LV Systolic Dimension: 2.82 cm LV Septum Diastolic: 1.12 cm LV PW Diastolic: 1.01 cm AO Root Dimension: 3.01 cm Cardiac Output: 6.04 l/min LA Dimension: 3.48 cm Cardiac Index: 3.32 l/min*m RV Diastolic Dimension: 2.19 cm LA volume index: 20 ml/m LVOT: 2.23 cm LVOT VTI: 16.63 cm RV Base: 2.6 cm LV Stroke volume: 64.92 ml RV Mid: 1.9 cm LV Stroke volume index: 35.67 ml/m TAPSE: 2 cm Doppler Measurements AV Peak Velocity: 1.3 m/s MV Peak E-Wave: 0.55 m/s AV Peak Gradient: 6.76 mmHg MV Peak A-Wave: 0.62 m/s AV Mean Gradient: 4.64 mmHg MV E/A Ratio: 0.89 LVOT Peak Velocity: 0.82 m/s MV P1/2t: 64.9 msec AV Area (Continuity):2.77 cm MV Deceleration Time: 223.8 msec MV Area (PHT): 3.39 cm PV Peak Velocity: 0.79 m/s PV Peak Gradient: 2.52 mmHg RA Area: 13.36 cm Findings Left Ventricle The left ventricle is normal in size . Mild left ventricular hypertrophy. Diastolic assessment reveals Grade I diastolic dysfunction. Right Ventricle Normal right ventricle structure and function. Left Atrium Normal left atrial size. Right Atrium Normal right atrial size. Mitral Valve Mild thickening of the mitral valve leaflets. Trivial mitral regurgitation by color Doppler. Aortic Valve Normal aortic valve structure and function. Tricuspid Valve Normal tricuspid valve structure and function. Trivial tricuspid regurgitation by color Doppler. Pulmonic Valve The pulmonic valve is not well visualized. Pericardial Effusion No evidence of pericardial effusion. Miscellaneous Visualized portions of the aortic root and ascending aorta appear normal in size. Pleural Effusion No evidence of pleural effusion. Contractility Score LV regional wall motion:(0-Non visualized 1-Normal 2-Hypokinesis 3-Akinesis 4-Dyskinesis 5-Aneurysm) Signature
--- NOTE | ~2016-10-15 | CB ---
ADMIT: 10/15/2016 RM/LOC: 313 [facility] MR#: [id number] [address] [address] ADRIENNE FLORES [address] [place] [address] Code Blue Report SEX: F AGE: 50 : 1965 Corrected: 10/22/2016 1338 danny DATE: 10/15/2016 I was called to the floor at 2125 hours by the patient who was admitted directly through our ER for esophageal tracheal fistula problems, possible aspiration. Has a known history of lung cancer on radiation stage IV. SUBJECTIVE: I was called up to the floor bed because the patient become acutely, had a respiratory distress. She was actually not verbalizing. When I arrived on the floor, her was out there, he confirms that she is full code. Due to her coarseness of her lung sounds, she had a strong pulse. We elected to intubate here. I gave her 20 mg IV etomidate, 100 mg IV succinylcholine. I intubated with a 7.5 ET tube, was taped at the teeth. Breath sounds were good. Sats came up. We had no difficulty. Dr. Navarrete arrived in the room and will take over the care. ASSESSMENT: 1. Acute respiratory arrest. 2. Intubated in the room as described. PLAN: Per Dr. Navarrete. Sal Montemayor MD/ laniel JOB #: [id number] CC: Tomeka Navarrete, Attending Physician Tomeka Navarrete, Family Physician Corrected: 10/22/2016 1338 danny
[~2016-10-15 18:24] MED LIST changes: +BENADRYL25 MG PO; +CLEOCIN75 MG/5 ML IV; +COLACE-DPS100 MG PO; +HEPARIN LO IV; +MAALOX DPS30 ML PO; +MORPHINE P30 MG/30 M IV; +MORPHINE2 MG/ML IV; +NARCAN4 MG IV; +NITROSTAT0.4 MG SL; +NORMAL SALINE FL5 ML IV; +NORMAL SALINE IV; +NORMAL SALINE1000 ML IV; +PROTONIX IV40 MG IV; +PROVENTIL2.5 MG/3 M IH; +REGLAN INJ10 MG/2 ML IV; +SOLU-MEDRO125 MG/2 M IV; +TYLENOL DPS325 MG PO
--- NOTE | 2016-10-19 14:54 | HP ---
ADMIT: 10/15/2016 RM/LOC: 504 [facility] MR#: [id number] [address] [place], [place] [address] ADRIENNE FLORES [address] [place] [address] History and Physical SEX: F AGE: 50 : 1965 DATE OF SERVICE: Please refer back to Zach on October 06, 2016. INTERVAL HISTORY: Adrienne went to [facility] upon transfer on October 07, 2016 and underwent esophageal stent placement for esophageal stricture and history of fistula. She was dismissed home and according to dismissal instructions that she told me she was on Levaquin and was told to start advancing very slowly with her water intake and then soft diet. She started to have shortness of breath on October 13 and presented to the emergency room in [place] at [facility]. She was admitted there as an OPO. She had chest x-ray showing no pneumonia. Her breathing felt worse as she tried to lie down supine, which was very similar to all the symptoms she had from her esophageal reflux and stricture. She was placed on oxygen, continued on antibiotic Levaquin to finish out treatment that started in [place]. She was given a dose of Lovenox for VTE prophylaxis. She also was put on O2. She was only very mildly hypoxic, but complained of feeling so short of breath. The oxygen was partly for comfort as well. In any case, she was improving, was off oxygen and then today started to cough more and brought up some phlegm along with what appeared to be tube feeding materials. Her physician in [place] contacted [facility] and was told to do a swallowing study. Dr. South contacted our facility at [place] because he did not feel they had the appropriate facility or capabilities to do the swallow study or any treatments that it might incur. She was transferred to my service and readmitted to [place]. On arrival, she is retching with a lot of belching, which is similar to the way she felt prior to the esophageal stent placement. She has a cough. She has not vomited in the last hour since I have been visiting with her. I reviewed her notes from [place] including laboratory and chest x-ray results. I will admit her, restart her on oxygen. Her saturations range from 92% to 97%, but she complains of feeling short of breath. I will also use Lovenox for VTE prophylaxis. Continue the Levaquin. Again, [place] report was that she ADMIT: 10/15/2016 RM/LOC: 504 [facility] MR#: [id number] [address] [address] FLORESADRIENNE Tomas [address] [place] [address] History and Physical SEX: F AGE: 50 : 1965 had pneumonia, but I do not have an actual chest x-ray report from [place]. The most recent chest x-ray was done in [place] and was clear. We will also monitor her electrolytes and her blood count. She has chronic anemia. She will continue nebulizer treatments that she was getting in [place]. I will use Dilaudid for her esophageal pain. Finally, she usually has been on tube feeds, but I will hold those for now and keep her n.p.o. until the morning when we get her swallowing study and then defer to both surgery and her oncologic surgeon. Dr. Hitesh Barnes is her surgeon in [place], and Dr. Rodriguez here in [place] is well acquainted with her as well, and I will ask him to consult in the morning. Adrienne was comfortable with that plan. Tomeka Navarrete MD/ luciano JOB #: [id number] CC: Tomeka Navarrete, Attending Physician Tomeka Navarrete, Family Physician
--- NOTE | 2016-10-22 08:15 | CO ---
ADMIT: 10/15/2016 RM/LOC: 313 [facility] MR#: [id number] [address] [address] ADRIENNE FLORES [address] [place] [address] Consultation SEX: F AGE: 50 : 1965 DATE OF CONSULTATION: 10/16/2016 ATTENDING PHYSICIAN: Tomeka Navarrete CONSULTING PHYSICIAN: Jose Cowart MD REASON FOR CONSULTATION: Elevated troponin level. HISTORY OF PRESENT ILLNESS: Adrienne is a 50-year-old female, who I was asked to see in consultation by Dr. Navarrete regarding elevated troponin level. Adrienne has no prior cardiac history, but does have stage IV metastatic lung cancer, she is undergoing palliative chemotherapy treatment. She has had radiation and has had esophageal strictures and tracheoesophageal fistula. She has a G- tube in place for nutrition. She recently on 10/06 was admitted to the hospital here and then transferred to [facility] where she underwent an esophageal stent for the fistula and stricture. She was discharged and then began having increasing shortness of breath on the and presented to the emergency room in [facility]. There her chest x-ray was reported as unremarkable, but she was very short of breath. [facility] was contacted and they recommended doing a swallow study. [facility] was unable to perform this, so she was transferred on the to [place] in the care of Dr. Navarrete. When she got here, she was having increasing shortness of breath. She was hypoxic and extremely anxious. She subsequently had a respiratory arrest and required intubation. During this setting, she has had a minimally elevated troponin level which this morning was at 0.6. Her CK and CK-MBs are normal. There is no history of coronary artery disease and no reported chest pain, but she is intubated now and no further history can be obtained. PAST MEDICAL HISTORY: 1. History of metastatic lung cancer, undergoing chemotherapy and radiation. 2. History of hypertension, controlled with losartan. 3. History of hypothyroidism. 4. History of diverticulitis. MEDICATIONS: Her current medications are; 1. DuoNebs. 2. Cozaar 50 mg daily. 3. Omeprazole daily. 4. Synthroid 0.05 mg daily. 5. Lovenox 40 mg subcu q.24 hours. 6. Propofol drip. 7. Fentanyl drip. 8. Meropenem 1 g q.8 hours. 9. Pepcid 20 mg b.i.d. 10.Solu-Medrol 80 mg q.8 hours. 11.Vancomycin 1 g q.12h. SOCIAL HISTORY: She is . 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 She is a lifetime nonsmoker. FAMILY HISTORY: Unable to obtain. REVIEW OF SYSTEMS: Unable to obtain. PHYSICAL EXAMINATION: VITAL SIGNS: Blood pressure is 133/93, pulse is 109, respirations 16, temperature 98.3, oxygen is 100% on the vent with 30% FiO2, and 5 of PEEP. GENERAL: She is sedated and comfortable. HEENT: Endotracheal tube in place. No scleral icterus. Moist mucous membranes. NECK: Supple. LUNGS: She has distant breath sounds. HEART: Tachycardic. ABDOMEN: Soft. She does grimace to palpation. EXTREMITIES: She has trace edema bilaterally. DIAGNOSTIC DATA: Sodium 131, creatinine 0.7, CK 29, MB 1.3, troponin 0.6. Hemoglobin 7.8, and platelets 203. IMPRESSION AND PLAN: 1. Elevated troponin. Patient's troponin is minimally elevated. Her EKG shows some nonspecific ST depression. At this point, it appears mostly this is likely secondary to hypoxia and respiratory arrest. She has no history of coronary artery disease. We will trend her troponins and check an echocardiogram. We will continue with medical therapy. 2. Respiratory failure. 3. Stage IV metastatic lung cancer. 4. Esophageal stricture and esophageal tracheal stricture, status post stent at [facility]. We will follow along and amend our plan as her care progresses. Jose Cowart MD/ luciano JOB #: [id number] CC: Tomeka Navarrete, Attending Physician Tomeka Navarrete, Family Physician
--- NOTE | 2016-10-24 08:04 | DS ---
ADMIT: 10/15/2016 RM/LOC: 313 [facility] MR#: [id number] [address] [address] ADRIENNE FLORES [address] [place] [address] General Discharge Summary SEX: F AGE: 50 : 1965 ADMISSION DATE: 10/15/2016 DISCHARGE DATE: 10/16/2016 FINAL DIAGNOSES: 1. Acute respiratory failure. 2. Tracheoesophageal fistula. 3. Stage IV metastatic lung cancer. 4. Esophageal stricture. 5. Hypertension, controlled. Adrienne was admitted to [facility] after being transferred from [facility]. She had been admitted there for increasing shortness of breath and difficulty with chest pain after having an esophageal stent placed. Please refer to the H and P. In any case, Adrienne has a very complicated history of metastatic lung cancer, and has undergone radiation and also chemotherapy. She has an esophageal stricture and developed esophageal tracheal fistula. About a week prior to this hospital stay, she was admitted at [facility] in [place] and had an esophageal stent placed. She had been home only 2 days after that and began to have some difficulty with breathing and so was readmitted at [facility] and then transferred to our facility. On transfer, she was alert and oriented. She could not lay back because of discomfort and was having belching and reflux symptoms. She was extremely uncomfortable with that. I kept her n.p.o. and held her G-tube feedings. We made plans to set up a swallow study on the morning of 10/16 as recommended by her oncologic surgeon, Dr. Barnes at [facility]. I continued oxygen as well as nebulizer treatments. Also, continued Levaquin for her productive cough. Chest x-ray showed left lower lobe opacities and her infuse [id number]-[id number] catheter. Later in the evening on 10/15, Adrienne was getting more and more agitated and said she had more difficult time breathing. She was sitting upright. We gave her IV Solu-Medrol and DuoNeb, and I ordered CT angiogram. The patient voiced ADMIT: 10/15/2016 RM/LOC: 313 [facility] MR#: [id number] [address] [address] ADRIENNE FLORES [address] [place] [address] General Discharge Summary SEX: F AGE: 50 : 1965 that she was extremely anxious and could not tolerate doing the angiogram. As preparations were being made to get her to the CAT scan, she became acutely more short of breath and was being treated for anxiety, but then dropped her sats. The nurse called rupert toro for respiratory reasons. The patient still had respiratory effort and had heart rate in the sinus rhythm. The emergency room physician responded to the code blue and intubated Adrienne. They also attempted suction, but they were unable to pass the suction tube much lower than the back of the mouth. In any case, she was transferred down to the intensive care unit at that point, and Critical Care was consulted. On the morning of 10/16, Dr. Flores with Critical Care spoke with [facility] and transferred the patient to [place] under the care of her oncologic surgeon to assess the esophageal stent. She remained intubated on transfer. Tomeka Navarrete MD/ luciano JOB #: [id number] CC: Tomeka Navarrete MD, Attending Physician Tomeka Navarrete MD, Family Physician
--- NOTE | 2016-10-31 16:37 | CO ---
ADMIT: 10/15/2016 RM/LOC: 313 [facility] MR#: [id number] [address] [address] ADRIENNE LIPSCOMB [address] [place] [address] Consultation SEX: F AGE: 50 : 1965 DATE OF CONSULTATION: 10/16/2016 ATTENDING PHYSICIAN: Tomeka Navarrete MD CONSULTING PHYSICIAN: Pepe Ramon MD REASON FOR THE CONSULTATION: Test for lung cancer and respiratory failure. HISTORY AND PHYSICAL: Ms. Lipscomb is a 50-year-old pleasant woman who is the patient of my colleague Dr. Heller has a history of lung cancer on multiple chemotherapy. Her cancer was recently progressing. She was supposed to be on Mirati clinical trials, but her course has been complicated by esophageal tracheal fistula. She was in the hospital at [facility] then she came for swallow evaluation in [facility]. Her condition deteriorated. She probably aspirated from the esophageal tracheal fistula and went into respiratory failure. The patient is not currently intubated. Hematology and oncology will be consulted for further evaluation. I could not talk to the patient, but I have talked to the family members. She is on ventilator but she still can response. I have also talked to the our critical care physician. He thinks that there is obstructions on the esophageal stent that she is unable to swallow. Whatever she swallows, it probably goes to the lung from the esophageal tracheal fistula. The course has been very complicated. As per the critical physician doctor, he probably might transfer her to [facility] because it is out of his control here in this hospital. No other problems. PAST MEDICAL HISTORY: The patient has stage IV lung cancer on multiple chemotherapy. Her cancer has been progressed recently, and she was supposed to be enrolled in clinical trials called Mirati trial. ALLERGIES: NO KNOWN DRUG ALLERGIES. SOCIAL HISTORY: She is currently not a smoker. Not a drinker. She is a lifelong nonsmoker. She is currently intubated. All her medical records were obtained actually from the computer and the charts. FAMILY HISTORY: She is not aware of any kind of hereditary malignancies in the family, but has high blood pressure in the family. ALLERGIES: NO KNOWN DRUG ALLERGIES. MEDICATIONS: Please review the chart for complete medication list. REVIEW OF SYSTEMS: Could not get all the review of symptoms because of the patient is intubated. She is on ventilator. PHYSICAL EXAMINATION: VITAL SIGNS: Temperature 97.9, pulse 84, respirations 16, blood pressure 100/75. HEENT: Normocephalic and atraumatic. The patient is on ventilator. ADMIT: 10/15/2016 RM/LOC: 313 [facility] MR#: [id number] [address] [address] FLORIAN LIPSCOMBMICHELLE [place] [address] [place] [address] Consultation SEX: F AGE: 50 : 1965 LUNGS: Clear. HEART: S1, S2 heard. Regular rate and rhythm. ABDOMEN: Soft, nontender, and nondistended. Positive bowel sounds. EXTREMITIES: No edema. NEUROLOGY: Could not do it due to the patient is on ventilator. LYMPHATICS: No abnormal liver palpated. SKIN: No rash. LABS: WBC is 9.3, hemoglobin 7.8, platelet 203, normal kidney and normal LFTs. IMPRESSION AND RECOMMENDATIONS: Ms. Lipscomb is a 50-year-old pleasant woman with a history of stage IV lung cancer on multiple chemotherapy has progressed on various of treatment. Currently, was supposed to enrol on Mirati trial, which is a targeted drugs, but her course of treatment has been complicated by esophageal tracheal fistula, which was the complication of radiation treatment. She has esophageal stent because of the problem with the swallowing. It looks like stent is also completely blocked as per the CAT scan that was reviewed by the critical care physician. She is intubated, probably she aspirated. As per the critical-care physician, it will be unlikely to manage here in our hospital, so he is thinking of transferring her to [facility]. For now, we will with continue supportive care. I have discussed with the patient's family member about the expectations that seems to get better and off the ventilator before we even consider for clinical trials. She will probably be transferred to [facility]. We will get the followup. We would like to be as aggressive as possible if she can come out of this situation as she is young, and she has been enrolled on clinical trials and has not started the treatment as of yet. I will check CBC and CMP for tomorrow. Thank you for your consultation and opportunity in taking care of your patient. Pepe Ramon MD/ luciano JOB #: [id number] CC: Tomeka Navarrete MD, Attending Physician Tomeka Navarrete MD, Family Physician
== END 2016-10-16 18:10 | disposition short-term general hospital (02) | DRG 208 ==
LOC: ER 18:24 → 5MS 19:06 → 3ICU 19:06 → EDSTATUS 19:10 → 3ICU 21:44
PROVIDERS: ADMIT Family Medicine
PROC: 0BH17EZ Insertion of Endotracheal Airway into Trachea, Via Natural or Artificial Opening (ICD-10-PCS; principal; 2016-10-15)
PROC: 5A1935Z Respiratory Ventilation, Less than 24 Consecutive Hours (ICD-10-PCS; 2016-10-15)
PROC: 30233N1 Transfusion of Nonautologous Red Blood Cells into Peripheral Vein, Percutaneous Approach (ICD-10-PCS; 2016-10-16)
DX: J69.0 Pneumonitis due to inhalation of food and vomit (principal); J86.0 Pyothorax with fistula; J96.00 Acute respiratory failure, unspecified whether with hypoxia or hypercapnia; Z93.1 Gastrostomy status; C34.90 Malignant neoplasm of unspecified part of unspecified bronchus or lung; D64.9 Anemia, unspecified; I10 Essential (primary) hypertension; R09.2 Respiratory arrest; F41.9 Anxiety disorder, unspecified; R73.9 Hyperglycemia, unspecified; G89.29 Other chronic pain; M54.9 Dorsalgia, unspecified; K57.90 Diverticulosis of intestine, part unspecified, without perforation or abscess without bleeding